=== PATIENT | female | born 1965 | race Caucasian/White ===

== ENCOUNTER 2017-09-29 00:32 | Emergency (ER) | payer BC, OTHER ==
[2017-09-29 00:39] VITALS: BP 154/93; PULSE 67; TEMP 97.6; BMI 26.2
[2017-09-29] MEDS ORDERED: KETOROLAC TROMETHAMINE 60 MG/2 ML VIAL IM ONE (01:32)
[2017-09-29] MEDS ORDERED: KETOROLAC TROMETHAMINE 60 MG/2 ML VIAL ONE (01:37)
--- NOTE | 2017-09-29 01:55 | PDOC ---
History of Present Illness - General Chief Complaint: Ear Problem Stated Complaint: L EAR PAIN Time Seen by Provider: 09/29/17 01:01 History Source: Patient Exam Limitations: No Limitations - History of Present Illness Initial Comments: 09/29/17 01:44 Patient is a 51-year-old female with no past medical history here with complaints of left ear pain, tender swelling submandibular left side and rash to the left face 2 days. Patient states she had an infected tooth on the left lower jaw a surgical extraction on 5 days ago. For the past few days he's had pain and swelling submandibular area, left ear and some rash to her left face. She had a fever last week but currently no symptoms of fever. She has been taking Tylenol but has not taken it for a few hours because she thought it conflicted with the Augmentin medication she is currently taking. PMD; in [place] PMHX: as above ALL: NKDA GENERAL/CONSTITUTIONAL: [No fever or chills. No weakness. No weight change.] HEAD, EYES, EARS, NOSE AND THROAT: [No change in vision. (+) ear pain (-) discharge. No sore throat.] CARDIOVASCULAR: [No chest pain or shortness of breath.] RESPIRATORY: [No cough, wheezing, or hemoptysis.] GASTROINTESTINAL: [No nausea, vomiting, diarrhea or constipation. No rectal bleeding.] GENITOURINARY: [No dysuria, frequency, or change in urination.] MUSCULOSKELETAL: [No joint or muscle swelling or pain. No neck or back pain.] SKIN AND BREASTS: (+) rash or easy bruising.] NEUROLOGIC: [No headache, vertigo, loss of consciousness, or loss of sensation.] PSYCHIATRIC: [No depression or anxiety.] ENDOCRINE: [No increased thirst. No abnormal weight change.] HEMATOLOGIC/LYMPHATIC: [No anemia, easy bleeding, or history of blood clots.] ALLERGIC/IMMUNOLOGIC: [No hives or skin allergy. No latex allergy.] GENERAL: [The patient is awake, alert, and fully oriented, in no acute distress. ] HEAD: [Normal with no signs of trauma.] EYES: [Pupils equal, round and reactive to light, extraocular movements intact, sclera anicteric, conjunctiva clear.] ENT: [Ears (+) swelling to the middle ear, (+) erythema, nares patent, oropharynx clear without exudates. Moist mucous membranes.] NECK: [Normal range of motion, supple (+) lymphadenopathy left submandibular nodes, tenderness to palp, JVD, or masses.] LUNGS: [Breath sounds equal, clear to auscultation bilaterally. No wheezes, and no crackles.] HEART: [Regular rate and rhythm, normal S1 and S2 without murmur, rub.] ABDOMEN: [Soft, nontender, normoactive bowel sounds. No guarding, no rebound. No masses.] EXTREMITIES: [Normal range of motion, no edema. No clubbing or cyanosis. No cords, erythema, or tenderness.] NEUROLOGICAL: [Cranial nerves II through XII grossly intact. Normal speech, normal gait.] PSYCH: [Normal mood, normal affect.] SKIN: [Warm, Dry, normal turgor, (+) healed ulcers to the left face, or lesions noted.] Past History - Past Medical History Allergies/Adverse Reactions: Allergies Allergy/AdvReac Type Severity Reaction Status Date / Time No Known Allergies Allergy Verified 09/29/17 00:37 Home Medications: Ambulatory Orders Ciprofloxacin HCl/Dexameth [Ciprodex Otic Suspension] 4 drop BID 7 Days #1 bottle 09/29/17 COPD: No Other medical history: denies - Immunization History Immunization Up to Date: No - Suicide/Smoking/Psychosocial Hx Smoking Status: No Smoking History: Never smoked Number of Cigarettes Smoked Daily: 0 Information on smoking cessation initiated: No Hx Alcohol Use: No Drug/Substance Use Hx: No Substance Use Type: None Hx Substance Use Treatment: No *Physical Exam - Vital Signs Last Vital Signs Temp Pulse Resp BP Pulse Ox 97.6 F 67 18 154/93 100 09/29/17 00:34 09/29/17 00:34 09/29/17 00:34 09/29/17 00:34 09/29/17 00:34 ED Treatment Course - Medications Given in the ED: ED Medications Discontinued Medications Generic Name Dose Route Start Last Admin Trade Name Freq PRN Reason Stop Dose Admin Ketorolac Tromethamine 60 mg 09/29/17 01:32 09/29/17 01:40 Toradol Injection - IM 09/29/17 01:33 60 mg ONCE ONE Administration Medical Decision Making - Medical Decision Making 09/29/17 01:55 Patient is a 51-year-old female with no past medical history here with complaints of left ear pain, tender swelling submandibular left side and rash to the left face 2 days. Symptoms consistent with otitis externa with lympodenopathy Toradol 60 mg IM Rx to pharmacy for ciprodex. I discussed the physical exam findings, ancillary test results and final diagnoses with the patient. I answered all of the patient's questions. The patient was satisfied with the care received and felt comfortable with the discharge plan and treatment plan. The Patient agrees to follow up with the primary care physician within 24-72 hours. *DC/Admit/Observation/Transfer Diagnosis at time of Disposition: Otitis externa Qualifiers: Otitis externa type: unspecified type Chronicity: unspecified Laterality: left Qualified Code(s): H60.92 - Unspecified otitis externa, left ear - Discharge Dispostion Disposition: HOME Condition at time of disposition: Stable - Prescriptions Prescriptions: Ciprofloxacin HCl/Dexameth [Ciprodex Otic Suspension] 4 drop BID 7 Days #1 bottle - Referrals Referrals: Jennifer Archibald MD [Primary Care Provider] - Gee Lakhani MD [Staff Physician] - - Patient Instructions Printed Discharge Instructions: DI for Otitis Externa Additional Instructions: Your Discharge Instructions: You must call primary care physician within 24 hours to arrange follow-up. Return to the Emergency Department with any new, persistent or worsening symptoms, for fever, chills, SOB, dizziness or any other concerning changes that may occur. Print Language: VENEZUELAN - Post Discharge Activity
== END 2017-09-29 02:02 | disposition home or self-care (01) ==
LOC: JER 00:32
PROC: 3E0233Z Introduction of Anti-inflammatory into Muscle, Percutaneous Approach (ICD-10-PCS; principal; 2017-09-29)
DX: H60.92 Unspecified otitis externa, left ear (principal)
CPT/HCPCS: 99281-25